=== PATIENT | male | born 1990 | race Hispanic/Latino ===

== ENCOUNTER 2024-04-10 14:44 | Outpatient (CLI) | payer OTHER | END 2024-04-10 14:45 | disposition home or self-care (01) | LOC: CSHMRI 14:44 | PROVIDERS: ATTEND Family Medicine | DX: S89.91XA Unspecified injury of right lower leg, initial encounter (principal); S76.191A Other specified injury of right quadriceps muscle, fascia and tendon, initial encounter ==